=== PATIENT | female | born 1945 | race Caucasian/White ===

== ENCOUNTER 2017-12-21 20:05 | Emergency (ER) | payer MEDICARE, BC ==
[2017-12-21] MEDS ORDERED: Clindamycin HCl 150 MG Cap PO ONE (20:46)
--- NOTE | 2017-12-21 20:52 | EDM.PDOC ---
ED HPI GENERAL MEDICAL PROBLEM - General Chief Complaint: ENT Problem Stated Complaint: TOOTH PAIN Time Seen by Provider: 12/21/17 20:36 Source of Information: Reports: Patient History Limitations: Reports: No Limitations - History of Present Illness INITIAL COMMENTS - FREE TEXT/NARRATIVE: Patient is a 72-year-old female who presents to the ED complaining of right upper tooth pain. States the discomfort started a few days ago. Has progressively gotten worse. Has developed some slight swelling to the cheek. Been utilizing Tylenol and Motrin for pain. Has appointment with dentist scheduled for this . She denies any sore throat, fever, nausea/vomiting , or any additional complaints. 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 Right Upper Oral/Mouth Pain Score (Numeric/FACES): 9 - Related Data Allergies Allergy/AdvReac Type Severity Reaction Status Date / Time Penicillins Allergy Other Verified 12/21/17 20:33 Home Meds: Home Meds Clindamycin HCl 300 mg PO TID #30 capsule 12/21/17 [Rx] Past Medical History Gastrointestinal History: Reports: [employer] History: Reports: Other (See Below) Other OB/BYN History: masectomy Oncologic (Cancer) History: Reports: Breast - Past Surgical History Musculoskeletal Surgical History: Reports: Other (See Below) Other Musculoskeletal Surgeries/Procedures:: ablation of saphenous vein Social & Family History - Family History Family Medical History: Noncontributory - Tobacco Use Smoking Status *Q: Never Smoker - Caffeine Use Caffeine Use: Reports: None - Recreational Drug Use Recreational Drug Use: No ED ROS ENT - Review of Systems Review Of Systems: See Below Constitutional: Denies: Fever, Chills, Decreased Appetite HEENT: Reports: Dental Pain. Denies: Ear Pain Musculoskeletal: Denies: Neck Pain Neurological: Reports: No Symptoms ED EXAM, ENT - Physical Exam Exam: See Below Exam Limited By: No Limitations General Appearance: Alert, WD/WN, Mild Distress Eye Exam: Bilateral Eye: Normal Inspection Ears: Hearing Grossly Normal Nose: Normal Inspection Mouth/Throat: Dental Tenderness (#1, 2, 3 teeth ( #1, 2 teeth are both crowns) no swelling to the lateral/medial gumline with minimal discomfort on palpation. ), Other. No: Dental Trauma, Drooling, Dry Mucous Membrane, Muffled Voice, Peritonsillar Mass, Pharyngeal Erythema, Tonsillar Erythema, Tonsillar Exudates , Tonsillar Swelling, Trismus Head: Atraumatic, Normocephalic, Facial Swelling (right cheek with mild discomfort. ) Neck: Normal Inspection, Supple, Non-Tender. No: Lymphadenopathy (L), Lymphadenopathy (R) Cardiovascular: Normal Peripheral Pulses, Regular Rate, Rhythm Neurological: Alert, Oriented, CN II-XII Intact, Normal Cognition, No Motor/ Sensory Deficits Psychiatric: Normal Affect, Normal Mood Skin: Warm, Dry, Intact, Normal Color Course - Vital Signs Last Recorded V/S: Last Vital Signs Temp 69 F L 12/21/17 20:29 Pulse 69 12/21/17 20:29 Resp 18 12/21/17 20:29 BP 105/63 12/21/17 20:29 Pulse Ox 95 12/21/17 20:29 - Orders/Labs/Meds Meds: Medications Discontinued Medications Generic Name Dose Route Start Last Admin Trade Name Freq PRN Reason Stop Dose Admin Clindamycin HCl 450 mg 12/21/17 20:46 12/21/17 20:54 Cleocin PO 12/21/17 20:47 450 mg ONETIME ONE Administration - Re-Assessments/Exams Free Text/Narrative Re-Assessment/Exam: Patient most likely has a dental infection. Seated along the #12 and 3 tooth. # 1 and 2 teeth are both crowns. Tenderness noted along the lateral gumline. Slight swelling to the cheek with pain on palpation. She has appointment with her dentist for this coming . She refuses any pain medications. She'll continue the ibuprofen and Tylenol. She is allergic to penicillin thus have ordered clinidamycin loading dose of 450 mg by mouth. We'll discharge home with instructions as documented with a prescription for clindamycin. Departure - Departure Time of Disposition: 20:51 Disposition: Home, Self-Care 01 Condition: Good Clinical Impression: Dental infection - Discharge Information Prescriptions: Clindamycin HCl 300 mg PO TID #30 capsule Instructions: Dental Abscess Referrals: Liz Torres MD [Primary Care Provider] - Forms: ED Department Discharge Additional Instructions: Take the clindamycin as prescribed for dental infection. Utilize Tylenol and ibuprofen in alternating fashion for pain. Keep appointment with dentist as scheduled for this coming . Return to the ED if you develop any new or worsening symptoms as discussed. Suggest taken any [id number] probiotic while on any oral antibiotic.
== END 2017-12-21 21:00 | disposition home or self-care (01) ==
LOC: JD.ED 20:05
DX: K04.7 Periapical abscess without sinus (principal); K21.9 Gastro-esophageal reflux disease without esophagitis; Z88.0 Allergy status to penicillin
CPT/HCPCS: 99283; A9270